=== PATIENT | female | born 1990 | race Two or more races ===

== ENCOUNTER 2022-07-05 23:30 | Outpatient (CLI) | payer OTHER ==
[~2022-07-05] VITALS: Ht 149.9 cm; Wt 58.5 kg
[2022-07-06] MEDS ORDERED: ZOFRAN8 MG PO (01:14)
[2022-07-06] MEDS ORDERED: BONJESTA ER 201 EACH PO (01:15)
== END 2022-07-06 12:28 | disposition home or self-care (01) ==
LOC: OBS/DEL 23:30 → LDR 07-06 00:16 → OBS/DEL 07-06 12:28 → EDSTATUS 07-13 10:50
PROVIDERS: ATTEND Obstetrics & Gynecology
DX: O21.2 Late vomiting of pregnancy (principal); O26.893 Other specified pregnancy related conditions, third trimester; Z3A.34 34 weeks gestation of pregnancy; Z91.09 Other allergy status, other than to drugs and biological substances; Z20.822 Contact with and (suspected) exposure to COVID-19

== ENCOUNTER 2022-08-06 11:01 | Inpatient (IN) | payer OTHER ==
[~2022-08-06] VITALS: Ht 149.9 cm; Wt 2.7 kg
[~2022-08-06 11:01] MED LIST: BONJESTA ER 201 EACH PO; ZOFRAN8 MG PO
[2022-08-06] MEDS ORDERED: FOLIC PO (12:49)
[2022-08-07] MEDS ORDERED: UNISOM SLEEP AI25 MG (13:02)
== END 2022-08-10 13:03 | disposition home or self-care (01) | DRG 785 ==
LOC: O/R 08-07 05:38 → OB/GYN 08-07 05:38
PROVIDERS: ADMIT Obstetrics & Gynecology Gynecology; ATTEND Obstetrics & Gynecology Gynecology
PROC: 0UB70ZZ Excision of Bilateral Fallopian Tubes, Open Approach (ICD-10-PCS; 2022-08-07)
PROC: 4A1HXCZ Monitoring of Products of Conception, Cardiac Rate, External Approach (ICD-10-PCS; 2022-08-07)
PROC: 10D00Z1 Extraction of Products of Conception, Low, Open Approach (ICD-10-PCS; principal; 2022-08-07 09:00)
DX: O82 Encounter for cesarean delivery without indication (principal); Z3A.39 39 weeks gestation of pregnancy; Z37.0 Single live birth; Z20.822 Contact with and (suspected) exposure to COVID-19; Z30.2 Encounter for sterilization

== ENCOUNTER 2022-11-03 19:06 | Emergency (ER) | payer OTHER ==
[~2022-11-03] VITALS: Ht 144.8 cm; Wt 59.0 kg
[~2022-11-03 19:06] MED LIST changes: +FOLIC PO; +UNISOM SLEEP AI25 MG
== END 2022-11-03 23:57 | disposition home or self-care (01) ==
LOC: ER 19:06
DX: B34.9 Viral infection, unspecified (principal); Z88.8 Allergy status to other drugs, medicaments and biological substances

== ENCOUNTER 2023-03-09 22:40 | Emergency (ER) | payer OTHER ==
[~2023-03-09] VITALS: Ht 43.2 cm; Wt 15.9 kg
[2023-03-10 01:43] LABS: ALBUMIN 3.9 gm/dL (3.4-5.0); BILIRUBIN TOTAL 0.38 mg/dL (0.3-1.2); CALCIUM 8.4 mg/dL (8.5-10.1); CREATININE SERUM 0.69 mg/dL (0.55-1.02); GFR 99.23; GLOBULINA 3.9 G/DL (2.4-3.5); TOTAL PROTEIN 7.8 gm/dL (6.4-8.2)
[2023-03-10 01:50] LABS: POTASSIUM 2.89 mEq/L (3.5-5.1)
[2023-03-10 02:01] LABS: HEMATOCRIT 37.9 % (36.0-45.00); HEMOGLOBIN 13.2 g/dL (12.0-15.00); MEAN CELL VOLUME 82.3 fL (80.00-100.00); MEAN CORPUSCULAR HEMOGLOBIN 28.6 pg (27.00-32.0); MEAN CORPUSCULAR HGB CONC 34.8 g/dl (32.0-36.0); PLATELET COUNT 184 K/uL (150-450); RED BLOOD COUNT 4.61 M/uL (4.00-6.00); RED CELL DISTRIBUTION WIDTH 15.6 % (11.5-14.5)
[2023-03-10 02:51] LABS: PH,URINE 6.5 (5.0-8.0); URINE APPEARANCE Clear; URINE BILIRRUBIN Negative (NEGATIVE); URINE BLOOD Negative; URINE COLOR Dark Yellow; URINE GLUCOSE Negative (NEGATIVE); URINE LEUKOCYTE Negative; URINE NITRATE Negative
[2023-03-10 02:54] LABS: URINE BACTERIA 1269.9 uL (0.0-1933); URINE EPITHELIAL CELLS 45.6 uL (0.0-38.8); URINE RBC 12.9 uL (0.0-20.8); URINE WBC 39.1 uL (0.0-23.2)
[2023-03-10 03:00] LABS: CALCIUM 8.2 mg/dL (8.5-10.1); CREATININE SERUM 0.64 mg/dL (0.55-1.02); GFR 108.23
[2023-03-10 04:21] LABS: POTASSIUM 2.84 mEq/L (3.5-5.1)
[2023-03-10 05:14] LABS: URINE PROTEIN 100 (NEGATIVE)
[2023-03-10 19:18] LABS: CALCIUM 7.6 mg/dL (8.5-10.1); CREATININE SERUM 0.5 mg/dL (0.55-1.02); GFR 143.9; POTASSIUM 3.86 mEq/L (3.5-5.1)
[2023-03-10] MEDS ORDERED: ONDANSETRON ODT8 MG PO (19:55)
[2023-03-10] MEDS ORDERED: PEPCID AC20 MG PO (19:55)
[2023-03-10] MEDS ORDERED: OSEL75CA PO (19:55)
[2023-03-10] MEDS ORDERED: TUSNEL LIQUID178 ML PO (19:55)
== END 2023-03-10 20:10 | disposition home or self-care (01) ==
LOC: ER 22:40
PROVIDERS: General Practice
DX: J10.1 Influenza due to other identified influenza virus with other respiratory manifestations (principal); E87.6 Hypokalemia; Z20.822 Contact with and (suspected) exposure to COVID-19

== ENCOUNTER 2023-05-03 16:37 | Emergency (ER) | payer OTHER ==
[~2023-05-03] VITALS: Ht 149.9 cm; Wt 51.7 kg
[~2023-05-03 16:37] MED LIST changes: +ONDANSETRON ODT8 MG PO; +OSEL75CA PO; +PEPCID AC20 MG PO; +TUSNEL LIQUID178 ML PO
[2023-05-03 18:00] LABS: HEMATOCRIT 41.6 % (36.0-45.00); MEAN CELL VOLUME 83.9 fL (80.00-100.00); MEAN CORPUSCULAR HEMOGLOBIN 28.4 pg (27.00-32.0); MEAN CORPUSCULAR HGB CONC 33.8 g/dl (32.0-36.0); PLATELET COUNT 274 K/uL (150-450); RED BLOOD COUNT 4.95 M/uL (4.00-6.00); RED CELL DISTRIBUTION WIDTH 13.9 % (11.5-14.5)
[2023-05-03 19:40] LABS: ALBUMIN 3.8 gm/dL (3.4-5.0); ALKALINE PHOSPHATASE 63 U/L (50-136); ALT/SGPT 21 U/L (12-78); AMYLASE 118 U/L (25-115); ANION GAP 10 (10.0-20.0); AST/SGOT 14 U/L (15-37); BILIRUBIN TOTAL 0.88 mg/dL (0.3-1.2); BLOOD UREA NITROGEN 8 mg/dL (7-18); BUN CREA RATIO 16 (7.0-25.0); CALCIUM 8.4 mg/dL (8.5-10.1); CARBON DIOXIDE 24 mEq/L (21-32); CHLORIDE 110 mmol/L (98-107); CREATININE SERUM 0.49 mg/dL (0.55-1.02); GLOBULINA 3.5 G/DL (2.4-3.5); GLUCOSE FASTING 103 mg/dL (65-100); LIPASE 26 U/L (13-75); OSMOLALITY SERUM 278 MOSM/KG (275-295); SODIUM 140 mmol/L (136-145); TOTAL PROTEIN 7.3 gm/dL (6.4-8.2)
[2023-05-03 20:17] LABS: HCG QUANTITATIVE < 1 mUI/mL (1-3)
== END 2023-05-03 20:30 | disposition home or self-care (01) ==
LOC: ER 16:37
PROVIDERS: General Practice
DX: R11.10 Vomiting, unspecified (principal); T40.425A Adverse effect of tramadol, initial encounter; Y92.009 Unspecified place in unspecified non-institutional (private) residence as the place of occurrence of the external cause

== ENCOUNTER 2023-06-07 01:33 | Emergency (ER) | payer OTHER ==
[~2023-06-07] VITALS: Ht 149.9 cm; Wt 52.2 kg
[2023-06-07] MEDS ORDERED: METOCLOPRAMIDE HCL 5 MG/ML VIAL IM STA (05:02)
[2023-06-07] MEDS ORDERED: RINGERS SOLUTION,LACTATED 1,000 ML IV STA (05:03)
[2023-06-07] MEDS ORDERED: ONDANSETRON HCL 2 MG/ML VIAL IV STA (05:03)
[2023-06-07] MEDS ORDERED: FAMOTIDINE/PF 20 MG/2 ML VIAL IV PUSH STA (05:04)
[2023-06-07] MEDS ORDERED: HYOSCYAMINE SULFATE 0.125 MG TAB.SUBL SL ONE (05:15)
[2023-06-07 05:43] LABS: HEMOGLOBIN 14.2 g/dL (12.0-15.00); MEAN CELL VOLUME 85.7 fL (80.00-100.00); MEAN CORPUSCULAR HEMOGLOBIN 29.1 pg (27.00-32.0); MEAN CORPUSCULAR HGB CONC 33.9 g/dl (32.0-36.0); PLATELET COUNT 254 K/uL (150-450); RED CELL DISTRIBUTION WIDTH 13.6 % (11.5-14.5)
[2023-06-07 06:00] LABS: CALCIUM 8.7 mg/dL (8.5-10.1); CREATININE SERUM 0.58 mg/dL (0.55-1.02); GFR 121.25; POTASSIUM 3.44 mEq/L (3.5-5.1)
== END 2023-06-07 07:16 | disposition home or self-care (01) ==
LOC: ER 01:33
DX: K52.89 Other specified noninfective gastroenteritis and colitis (principal)